=== PATIENT | male | born 2000 | race Caucasian/White ===

== ENCOUNTER 2021-06-17 19:07 | Emergency (ER) | payer OTHER ==
[2021-06-17 20:08] LABS: HEMOGLOBIN 14.9 gm/dl (14.0-17.5); RED BLOOD COUNT 5.22 M/UL (4.20-5.50); WHITE BLOOD COUNT 6.3 K/UL (4.5-11.0)
[2021-06-17 20:32] LABS: BUN/CREATININE RATIO 11 (0-10)
[2021-06-17] MEDS ORDERED: ANUSOL HC SUPP1 SUPP PR (20:48)
== END 2021-06-17 21:30 | disposition home or self-care (01) ==
LOC: ER1 19:07
PROVIDERS: Family Medicine
DX: K62.5 Hemorrhage of anus and rectum (principal)
CPT/HCPCS: 80053; 82272; 85025; 99283